=== PATIENT | male | born 1980 | race African-American/Black ===

== ENCOUNTER → 2022-07-28 11:24 | Outpatient (CLI) | payer OTHER, SELFPAY ==
--- NOTE | 2022-07-28 11:27 | DI.RAD.S_ITS ---
PROCEDURE: XR CHEST 2V INDICATIONS: ? Lt lung nodule. Hx of TB TECHNIQUE: 2 views of the chest were acquired. COMPARISON: None. FINDINGS: Surgical changes and devices: None. Lungs and pleura: Lungs are clear, aside from 1.9 cm mid right lung nodular opacity. No pleural effusions or pneumothorax. Mediastinum: Mediastinal contours are normal. Heart size is normal. Bones and chest wall: No suspicious bony abnormalities. Soft tissues appear unremarkable. IMPRESSION: 1.9 cm mid right lung nodular opacity. Pulmonary nodule cannot be excluded and chest CT scan is recommended for further assessment. Dictated by: Jake Byers [facility] Interpreted: Thad Connolly MD on 07/28/2022 at 12:09 Transcribed by: ONDINA on 07/28/2022 at 12:11 Approved by: Thad Connolly M.D. on 07/28/2022 at 17:39
[2022-07-28 12:20] LABS: Add Manual Diff / Slide Review NO; Basophils Absolute Auto 0 /uL (0-100); Basophils Percent Auto 0.4 % (0-2); Eosinophils Absolute Auto 100 /uL (0-450); Eosinophils Percent Auto 2.7 % (2-4); Hematocrit 43.9 % (41-53); Hemoglobin 14.7 g/dL (13.5-17.5); Lymphocytes Absolute Auto 2100 /uL (1100-4500); Lymphocytes Percent Auto 45.3 % (25-40); Mean Corpuscular HGB Conc 33.4 % (30-36); Mean Corpuscular Hemoglobin 30.2 PG (26-34); Mean Corpuscular Volume 90.4 fL (80-100); Monocytes Absolute Auto 400 /uL (0-900); Monocytes Percent Auto 8.7 % (3-14); Neutrophils Absolute Auto 2000 /uL (1500-7000); Neutrophils Percent Auto 42.9 % (50-75); Platelet Count 225 X10^3/uL (150-400); Red Blood Cell Count 4.85 X10^6/uL (4.5-5.9); Red Cell Distribution Width 12.2 % (11.6-14.8); White Blood Cell Count 4.6 X10^3/uL (4.5-11.0)
[2022-07-28 12:48] LABS: Alanine Aminotransferase 18 IU/L (<50); Albumin 4.2 g/dL (3.5-5.0); Albumin Globulin Ratio 1.4 (1.0-2.8); Alkaline Phosphatase 67 U/L (38-126); Aspartate Aminotransferase 32 IU/L (17-59); BUN Creatinine Ratio 11.7 (6-22); Bilirubin Total 1.2 mg/dL (0.2-1.3); Blood Urea Nitrogen 13 mg/dL (9-20); Carbon Dioxide 30 mmol/L (22-32); Chloride 101 mmol/L (98-107); Cholesterol 201 mg/dL (140-199); Estimated Glomerular Filt Rate > 60 mL/min (>60); Glucose 96 mg/dL (70-100); HDL Cholesterol 48 mg/dL (40-60); HEMOLYSIS < 15 (0-50); LDL Cholesterol Calculated 130 mg/dL (<100); Potassium 4.2 mmol/L (3.4-5.1); Sodium 139 mmol/L (137-145); Total Protein 7.2 g/dL (6.3-8.2); Triglycerides 116 mg/dL (35-150)
== END ==
PROVIDERS: PCP Family Medicine; Referring Provider Family Medicine; Visit Provider Family Medicine
DX: A15.9 Respiratory tuberculosis unspecified (principal); R07.89 Other chest pain; R91.1 Solitary pulmonary nodule
CPT/HCPCS: 36415; 71046; 80053; 80061; 85025

== ENCOUNTER → 2022-08-12 15:26 | Outpatient (CLI) | payer OTHER, SELFPAY ==
[2022-08-12 16:39] LABS: COVID19 -Nasal RAPID Negative (Negative)
== END ==
PROVIDERS: Radiology Diagnostic Radiology; PCP Family Medicine; Referring Provider Family Medicine; Visit Provider Family Medicine
DX: Z20.822 Contact with and (suspected) exposure to COVID-19 (principal)
CPT/HCPCS: 87635; C9803

== ENCOUNTER → 2022-08-13 07:43 | Outpatient (CLI) | payer OTHER, SELFPAY ==
--- NOTE | 2022-08-13 07:45 | DI.CT.S_ITS ---
PROCEDURE: CT CHEST WO CON INDICATIONS: evaluate Lung nodule TECHNIQUE: Noncontrast 5 mm thick sections acquired from the pulmonary apices to the posterior costophrenic angles. 1 mm lung window, 5 mm thick coronal and sagittal and 7 mm axial MIP reformats were then acquired. For radiation dose reduction, the following was used: automated exposure control, adjustment of mA and/or kV according to patient size. COMPARISON: [facility], , XR CHEST 2V, 07/28/2022, 11:26. FINDINGS: Image quality: Excellent. Lungs and pleura: There are multiple lung nodules. Reference nodules are listed in the following: Nodule 1: 1.2 x 1.9 cm; right lower lobe; series 3, image 153; spiculated and calcified. Nodule 2: 0.5 x 0.8 cm; right lower lobe; series 3, image 141; spiculated. Nodule 3: 0.7 cm; right lower lobe; series 3, image 107; spiculated and calcified. Nodule 4: 0.6 x 0.9 cm; right upper lobe; series 3, image 163; spiculated and calcified. No acute air space opacities. No pleural effusions or pneumothorax. Central and peripheral airways are patent and normal in caliber. Mediastinum: Heart size is normal. No pericardial effusion. No mediastinal adenopathy by size criteria. Thoracic aorta and central pulmonary arteries are normal in size. Esophagus is normal in caliber. No hiatal hernia. Bones and chest wall: No suspicious bony lesions. No vertebral body compression fractures. No axillary or supraclavicular adenopathy by size criteria. Thyroid gland is unremarkable. Abdomen: Visualized upper abdominal solid organs and bowel loops appear normal in the absence of contrast. IMPRESSION: 1. Multiple spiculated lung nodules are present bilaterally. The dominant nodules are calcified, suggesting a benign etiology, most likely sequelae of granulomatous infections. Given spiculated morphology, a short-term follow-up CT is suggested in 6 months. Dictated by: Fly Cho M.D. on 08/13/2022 at 12:49 Approved by: Fly Cho M.D. on 08/13/2022 at 13:05
--- NOTE | 2022-08-13 20:21 | DI.NM.S_ITS ---
DATE OF SERVICE: 08/13/2022 PROCEDURE PERFORMED: Exercise treadmill stress test without imaging. ORDERING PROVIDER: Dr. Steve Fonseca. INDICATIONS: The patient is a 42-year-old male with a history of nonexertional atypical chest discomfort. FINDINGS: 1. The patient was able to exercise for 12 minutes, 32 seconds on a standard Yosvany protocol, suggesting average exercise capacity with an USHA of -1%, achieving 13.1 METs. 2. He had a normal heart rate and blood pressure response to exercise, achieving a maximum heart rate of 180 BPM (100% of his predicted maximum). 3. He had no chest discomfort or other anginal symptoms. 4. His resting ECG shows sinus rhythm with possible LVH and early repolarization. There are no significant ST-segment shifts or arrhythmias with stress. IMPRESSION: 1. Normal exercise treadmill study for ischemia. 2. Average exercise capacity without angina or arrhythmias. OsmarVadim hurley - [place] doc#: [id number]/job#: [id number] dd: 08/13/2022 17:09:00 dt: 08/13/2022 19:23:00 DICTATING /COPIES TO: Avelino Steel MD COPIES MNE: BRADEN;
== END ==
PROVIDERS: PCP Family Medicine; Referring Provider Family Medicine; Visit Provider Family Medicine
DX: R07.89 Other chest pain (principal); R91.8 Other nonspecific abnormal finding of lung field
CPT/HCPCS: 71250; 93017

== ENCOUNTER → 2023-03-09 10:05 | Outpatient (CLI) | payer OTHER, SELFPAY ==
--- NOTE | 2023-03-09 10:06 | DI.CT.S_ITS ---
PROCEDURE: CT CHEST WO CON INDICATIONS: fu on nodules, hx of TB TECHNIQUE: Noncontrast 2.0-2.5 mm thick sections acquired from the pulmonary apices to the posterior costophrenic angles. 7 mm thick axial MIP and 5 mm coronal and sagittal reformats were then acquired. A low radiation dose technique was utilized. COMPARISON: [facility], CT, CT CHEST WO CON, 08/13/2022, 7:50. FINDINGS: Image quality: Diagnostic, given the low radiation dose technique. Lungs and pleura: The right lower lobe pulmonary nodules visualized on the comparison study dated August 13, 2022 are redemonstrated and appear similar in size. As before, some of these nodules appear partially calcified. The left lingular nodule is also unchanged in size from the prior study. No new pulmonary nodules. No acute airspace opacities. No pleural effusion or pneumothorax. Mediastinum: Heart size is normal. No pericardial effusion. No mediastinal adenopathy by size criteria. Thoracic aorta and central pulmonary arteries are normal in size. Esophagus is normal in caliber. No hiatal hernia. Bones and chest wall: No suspicious bony lesions. No vertebral body compression fractures. No axillary or supraclavicular adenopathy by size criteria. Thyroid gland is unremarkable . Abdomen: Visualized upper abdomen solid organs and bowel loops appear normal in the absence of contrast. IMPRESSION: 1. Stable pulmonary nodules when compared with the CT dated August 13, 2022. Follow-up CT in 12-18 months recommended. Fleischner Society criteria for SOLID lung nodule followup. Nodule size (mm)Low-risk patientHigh-risk patient<6 (single or multiple)No routine followup.Optional CT at 12 months. 6-8 (single or multiple)CT at 6-12 months, then optional CT at 18-24 mo.CT at 6-12 months, then CT at 18-24 months. >8 (single)CT at 3 months, PET-CT, or biopsy. Same as for low-risk pts. >8 (multiple)CT at 3-6 months, then optional CT at 18-24 mo.CT at 3-6 months, then CT at 18-24 months. Fleischner Society criteria for SUB-SOLID lung nodule followup. Solitary pure ground-glass nodules<6 mm (ground glass or part solid)No followup needed. 6 mm or larger (ground glass)CT at 6-12 months to confirm persistence, then CT every 2 years until 5 years.6 mm or larger (part solid)CT at 3-6 months to confirm persistence, then annual CT until 5 years if unchanged and solid component remains <6 mm. Multiple sub-solid nodules<6 mmCT at 3-6 months, then CT consider at 2 & 4 years for high risk patients. [address] at 3-6 months. Subsequent management based on most suspicious lesions. Recommendations do not apply to lung cancer screening, patients with immunosuppression, or patients with known primary cancer. Dictated by: Jane Barclay M.D. on 03/09/2023 at 12:16 Approved by: Jane Barclay M.D. on 03/09/2023 at 12:33
== END ==
PROVIDERS: PCP Family Medicine; Referring Provider Family Medicine; Visit Provider Family Medicine
DX: A15.9 Respiratory tuberculosis unspecified (principal); R91.8 Other nonspecific abnormal finding of lung field
CPT/HCPCS: 71250

== ENCOUNTER → 2025-03-27 15:59 | Outpatient (CLI) | payer OTHER, SELFPAY ==
[2025-03-27 17:23] LABS: Alanine Aminotransferase 20 IU/L (<50); Albumin 4.5 g/dL (3.5-5.0); Albumin Globulin Ratio 1.4 (1.0-2.8); Alkaline Phosphatase 71 U/L (38-126); Blood Urea Nitrogen 12 mg/dL (9-20); Calcium 8.9 mg/dL (8.4-10.2); Carbon Dioxide 26 mmol/L (22-32); Chloride 101 mmol/L (98-107); Cholesterol 229 mg/dL (140-199); Estimated Glomerular Filt Rate > 60 mL/min (>60); Globulin 3.3 g/dL (1.7-4.1); Glucose 128 mg/dL (70-99); HDL Cholesterol 48 mg/dL (40-60); HEMOLYSIS 21 (0-50); Potassium 3.9 mmol/L (3.4-5.1); Sodium 137 mmol/L (137-145); Total Protein 7.8 g/dL (6.3-8.2); Triglycerides 383 mg/dL (35-150); Uric Acid 6.1 mg/dL (3.5-8.5)
[2025-03-28 03:20] LABS: HIV 1 & 2 Ab/Ag 4th Gen Combo NEGATIVE (NEGATIVE); Hep C Virus Ab w/Reflex Quant NEGATIVE s/c (NEGATIVE)
== END ==
PROVIDERS: PCP Family Medicine; Referring Provider Family Medicine; Visit Provider Family Medicine
DX: E78.5 Hyperlipidemia, unspecified (principal); M25.569 Pain in unspecified knee
CPT/HCPCS: 80053; 80061; 84550; 86803; 87389